=== PATIENT | male | born 1960 | race Caucasian/White ===

== ENCOUNTER 2024-01-28 14:01 | Emergency (ER) | payer OTHER ==
[~2024-01-28] VITALS: Ht 175.2 cm; Wt 68.0 kg
[~2024-01-28 14:01] MED LIST: ANAPROX DS550 MG PO; ATIVAN1 MG PO; B-1100 MG PO; CELEBREX200 MG PO; CLINDAMYCIN HC300 MG PO; DARVOCET N 1001 TAB PO; FLEXERIL10 MG PO; FLEXERIL5 MG PO; MEDROL DOSEPAK4 MG PO; Motrin,Rufen800 MG PO; NIZORAL 2%15 GM PO; ULTRAM50 MG PO; VICODIN 5/500 505 MG PO; ZANTAC150 MG PO
[2024-01-28] MEDS ORDERED: Doxycycline Hyclate 100 MG CAP PO ONE (14:25)
== END 2024-01-28 14:26 | disposition home or self-care (01) ==
LOC: ED 14:01
DX: S50.862A Insect bite (nonvenomous) of left forearm, initial encounter (principal); F32.A Depression, unspecified; Z98.890 Other specified postprocedural states; W57.XXXA Bitten or stung by nonvenomous insect and other nonvenomous arthropods, initial encounter; Y93.89 Activity, other specified; Y92.009 Unspecified place in unspecified non-institutional (private) residence as the place of occurrence of the external cause; Y99.8 Other external cause status